=== PATIENT | female | born 1995 | race Caucasian/White ===

== ENCOUNTER 2024-05-18 18:00 | Inpatient (IN) | payer BC ==
[2024-05-18 18:41] VITALS: BMI 62.3
[2024-05-18] MEDS ORDERED: Lidocaine 1% (PF) 30 ML VIAL SC PRN (19:54)
[2024-05-18] MEDS ORDERED: Ondansetron PF 4 MG/2 ML Vial IVP PRN (19:54)
[2024-05-18] MEDS ORDERED: Diphenoxylate HCl/Atropine Tablet PO PRN ×2 (19:54)
[2024-05-18] MEDS ORDERED: hydrALAZINE 20 MG/ML VIAL SLOW IVP PRN (19:54)
[2024-05-18] MEDS ORDERED: HYDROcodone/Acetaminophen 5/325 mg Tablet PO PRN ×2 (19:54)
[2024-05-18] MEDS ORDERED: Misoprostol 200 MCG TAB PR PRN (19:54)
[2024-05-18] MEDS ORDERED: Oxytocin 30 units/NS 500 ML 500 ML IV SCH (19:54)
[2024-05-18] MEDS ORDERED: Acetaminophen 500 MG TAB PO PRN (19:54)
[2024-05-18] MEDS ORDERED: Tranexamic Acid 1,000 MG/10 ML VIAL IVP PRN (19:54)
[2024-05-18] MEDS ORDERED: Carboprost 250 MCG/ML AMP IM PRN (19:54)
[2024-05-18] MEDS ORDERED: Methylergonovine 0.2 MG/ML VIAL IM PRN (19:54)
[2024-05-18] MEDS ORDERED: Ibuprofen 800 MG TAB PO PRN (19:54)
[2024-05-18 20:24] LABS: Hematocrit 36.5 % (34.9-44.5); Hemoglobin 12.1 g/dL (12.0-15.5); Mean Corpuscular HGB CONC 33.2 g/dL (32.0-36.0); Mean Corpuscular Volume 78.5 fL (81.6-98.3); Platelet Count 184 10x3/uL (150-450); Red Blood Cell (RBC) Count 4.65 10x6/uL (3.90-5.03); White Blood Cell (WBC) Count 9.8 10x3/uL (3.5-10.5)
[2024-05-18] MEDS: Misoprostol 100 MCG TAB VAG SCH (21:15)
[2024-05-18 21:23] LABS: HBsAg Index 0.14 S/CO (0-0.99); Hep B Surf Ag - L&D Non-Reactive S/CO (NonReactive)
[2024-05-18 21:48] LABS: Syphilis Antibody Nonreactive (Nonreactive); Syphilis Antibody Index 0.05 S/CO (<1.00 Non-Reactive)
[2024-05-19] MEDS: fentaNYL 50 mcg/mL 1 mL Vial SLOW IVP PRN (02:06)
[2024-05-19] MEDS: fentaNYL/Ropivacaine Epidural 100 ML ONE (02:30)
[2024-05-19] MEDS ORDERED: Promethazine HCl 25 MG/ML VIAL IM PRN ×2 (02:34→22:26)
[2024-05-19] MEDS ORDERED: Acetaminophen 325 MG TAB PO PRN (02:34)
[2024-05-19] MEDS ORDERED: Moisturizing Cream (Eucerin) 113 GM JAR TOP PRN ×2 (02:34→22:26)
[2024-05-19] MEDS ORDERED: Ondansetron PF 4 MG/2 ML Vial IVP PRN ×3 (02:34→22:26)
[2024-05-19] MEDS ORDERED: Naloxone HCl 0.4 mg/ml Vial IVP PRN ×3 (02:34→22:26)
[2024-05-19] MEDS ORDERED: Lactated Ringer's 500 ML IV PRN (02:34)
[2024-05-19] MEDS ORDERED: diphenhydrAMINE 50 MG/ML VIAL IVP PRN (02:34)
[2024-05-19] MEDS ORDERED: ePHEDrine Sulfate 50 MG/10 ML VIAL SLOW IVP PRN (02:34)
[2024-05-19] MEDS ORDERED: Communication Order-Pharmacy FS SCH ×2 (02:45→22:30)
[2024-05-19] MEDS: Promethazine HCl 25 MG/ML VIAL IM PRN (05:02)
[2024-05-19] MEDS: Oxytocin 30 units/NS 500 ML 500 ML IV SCH (05:48)
[2024-05-19] MEDS: Lactated Ringer's 1,000 ML IV SCH (07:29)
[2024-05-19] MEDS: fentaNYL 2 mcg/Ropivacaine 0.2% Epidural 100 ML CADD EPIDURAL SCH (14:18)
[2024-05-19] MEDS ORDERED: Famotidine/PF 20 mg/2ml Vial SLOW IVP PRN (21:08)
[2024-05-19] MEDS ORDERED: Bicitra 30 ML UDCUP PO PRN (21:08)
[2024-05-19] MEDS ORDERED: CEFAZOLIN 2 GM in Sodium Chloride 0.9% 100 ML IVPB SCH (21:15)
[2024-05-19] MEDS ORDERED: Azithromycin 500 MG in Sodium Chloride 0.9% 250 ML 250 ML IVPB SCH (21:15)
[2024-05-19] MEDS ORDERED: Naloxone HCl 0.4 mg/ml Vial IV PRN (22:26)
[2024-05-19] MEDS ORDERED: fentaNYL 50 mcg/mL 1 mL Vial SLOW IVP PRN (22:26)
[2024-05-19] MEDS ORDERED: Meperidine HCl/PF 25 MG (1 mL) VIAL SLOW IVP PRN (22:26)
[2024-05-19] MEDS ORDERED: Morphine 4 MG/ML VIAL SLOW IVP PRN (22:26)
[2024-05-19] MEDS ORDERED: Ketorolac Tromethamine 30 MG (1 mL) VIAL IVP SCH (22:30)
[2024-05-20] MEDS ORDERED: Simethicone Chewable 80 MG TAB PO PRN (02:11)
[2024-05-20] MEDS ORDERED: Lanolin Ointment 7 GM TUBE TOP PRN (02:11)
[2024-05-20] MEDS ORDERED: hydrALAZINE 20 MG/ML VIAL SLOW IVP PRN (02:11)
[2024-05-20] MEDS ORDERED: Bisacodyl 10 MG SUPP PR PRN (02:11)
[2024-05-20] MEDS: diphenhydrAMINE 50 MG/ML VIAL IVP PRN (03:33)
[2024-05-20] MEDS: Azithromycin 500 MG VIAL ONE (04:42)
[2024-05-20] MEDS: Morphine PF 10 MG/10 ML VIAL ONE (04:42)
[2024-05-20] MEDS: Oxytocin 10 UNITS/ML VIAL ONE (04:42)
[2024-05-20] MEDS: PHENYLEPHRINE-NS 100 MCG/ML 10 ML SYRINGE ONE ×2 (04:42→04:43)
[2024-05-20] MEDS: CEFAZOLIN 2 GM VIAL ONE (04:42)
[2024-05-20] MEDS: Dexamethasone 10 MG/ML VIAL ONE (04:42)
[2024-05-20] MEDS: Ondansetron PF 4 MG/2 ML Vial ONE (04:42)
[2024-05-20] MEDS: EPINEPHrine 1 MG/ML VIAL ONE (04:43)
[2024-05-20] MEDS: Midazolam HCl 2 mg/2 ml Vial ONE (04:43)
[2024-05-20] MEDS: ePHEDrine Sulfate 50 MG/10 ML VIAL ONE (04:43)
[2024-05-20] MEDS: Lidocaine 2% MPF 10 ML AMP (For Epidural Use) ONE ×2 (04:43)
[2024-05-20] MEDS: Ketorolac Tromethamine 30 MG (1 mL) VIAL ONE (04:44)
[2024-05-20 05:09] LABS: Hematocrit 31.3 % (34.9-44.5); Hemoglobin 10.4 g/dL (12.0-15.5); Mean Corpuscular HGB CONC 33.2 g/dL (32.0-36.0); Mean Corpuscular Hemoglobin 26.8 pg (27.0-33.0); Mean Corpuscular Volume 80.7 fL (81.6-98.3); Mean Platelet Volume 12.4 fL (7.4-10.4); Platelet Count 163 10x3/uL (150-450); RBC Distribution Width 15.2 % (11.5-14.5); Red Blood Cell (RBC) Count 3.88 10x6/uL (3.90-5.03); White Blood Cell (WBC) Count 13.4 10x3/uL (3.5-10.5)
[2024-05-20] MEDS: Ketorolac Tromethamine 30 MG (1 mL) VIAL IVP PRN (05:31)
[2024-05-20] MEDS: Naloxone HCl 0.4 mg/ml Vial IVP PRN (07:39)
[2024-05-20] MEDS: Boostrix 0.5 ML (Tdap) VIAL (>/=7 yrs of age) IM ONE (08:16)
[2024-05-20] MEDS: Ferrous Sulfate 325 MG TAB PO SCH (09:47)
[2024-05-20] MEDS: Prenatal Vitamin 1 TAB PO SCH (09:49)
[2024-05-20] MEDS: Docusate 100 MG CAP PO SCH (09:50)
[2024-05-20] MEDS: HYDROcodone/Acetaminophen 5/325 mg Tablet PO PRN (09:50)
[2024-05-20] MEDS: diphenhydrAMINE 25 MG CAP PO PRN (09:50)
[2024-05-20] MEDS: Acetaminophen 325 MG TAB PO PRN (18:18)
[2024-05-20] MEDS: Ibuprofen 800 MG TAB PO SCH (18:26)
[2024-05-20] MEDS: Famotidine 20 MG TAB PO PRN (21:01)
[2024-05-20] MEDS: Mag-Al 1200 mg/1200 mg/30 ML UDCUP PO PRN (21:31)
[2024-05-21] MEDS: HYDROcodone/Acetaminophen 5/325 mg Tablet PO PRN (08:32)
[2024-05-21] MEDS ORDERED: ALPRAZolam 0.25 MG TAB PO PRN (09:59)
[2024-05-22] MEDS: Sertraline 25 MG TAB PO SCH (08:00)
[2024-05-22 08:38] VITALS: BP 124/88; TEMP 98
== END 2024-05-22 13:20 | disposition home or self-care (01) | DRG 788 ==
LOC: CSHLD 18:00 → CSHPED 05-20 01:05
PROVIDERS: ADMIT Obstetrics & Gynecology; ATTEND Obstetrics & Gynecology
PROC: 10D00Z1 Extraction of Products of Conception, Low, Open Approach (ICD-10-PCS; principal; 2024-05-18)
DX: O99.214 Obesity complicating childbirth (principal); E66.01 Morbid (severe) obesity due to excess calories; O62.9 Abnormality of forces of labor, unspecified; O69.81X0 Labor and delivery complicated by cord around neck, without compression, not applicable or unspecified; Z3A.39 39 weeks gestation of pregnancy; Z37.0 Single live birth; F41.9 Anxiety disorder, unspecified; O99.345 Other mental disorders complicating the puerperium
CPT/HCPCS: 36415; 51702; 85027; 86780; 86850; 86900; 86901; 87340; J0171; J1100; J1200; J1885; J2250; J2274; J2310; J2405; J2550; J2590; J3010; J7120